=== PATIENT | female | born 1965 | race Caucasian/White ===

== ENCOUNTER 2022-02-06 05:52 | Emergency (ER) | payer SELFPAY ==
[2022-02-06 06:08] VITALS: BP 175/88
== END 2022-02-06 07:45 | disposition left against medical advice (07) ==
LOC: ED 05:52
DX: G57.93 Unspecified mononeuropathy of bilateral lower limbs (principal); Z53.21 Procedure and treatment not carried out due to patient leaving prior to being seen by health care provider